=== PATIENT | female | born 1930 | race African-American/Black ===

== ENCOUNTER 2017-05-14 06:11 | Inpatient (IN) | payer MEDICARE ==
[~2017-05-14] VITALS: Ht 167.6 cm; Wt 62.6 kg
[~2017-05-14 06:11] MED LIST: AMLO5TAB88 PO; ASPI-867 PO; ATOR20TA PO; Atenolol PO
[2017-05-14] MEDS ORDERED: DIPHENHYDRAMINE 50MG/ML VIAL IV ONE (07:00)
[2017-05-14] MEDS ORDERED: METHYLPREDNISOLONE SOD SUCC 125 MG/2 ML VIAL IV ONE (07:00)
[2017-05-14] MEDS ORDERED: FAMOTIDINE 20MG/2ML VIAL IV ONE (07:00)
[2017-05-14 07:13] LABS: BASOPHILS % 0.9 % (0.0-2.0); EOSINOPHILS % 3.2 % (0.0-5.0); HEMATOCRIT. 38.8 % (36.0-48.0); HEMOGLOBIN. 12.8 g/dL (12.0-16.0); LYMPHOCYTES % 25.5 % (20.0-50.0); MEAN CORPUSCULAR HEMOGLOBIN 27.2 pg (28.0-32.0); MEAN CORPUSCULAR VOLUME 82.5 fL (81.0-99.0); MONOCYTES % 9.9 % (2.0-8.0); NEUTROPHILS % 60.5 % (40.0-76.0); RED CELL DISTRIBUTION WIDTH 15.3 % (11.6-14.6)
[2017-05-14 07:17] LABS: CHLORIDE 107 mEq/L (98-107)
[2017-05-14 07:19] LABS: INR 1.1
[2017-05-14 07:26] LABS: CARBON DIOXIDE 24 mEq/L (21-32)
[2017-05-14 07:33] LABS: MEAN PLATELET VOLUME 8.7 fl (7.4-10.4)
[2017-05-14 07:34] LABS: PLATELET 245 x1000/uL (130-400)
[2017-05-14 10:45] VITALS: BP 132/63
[2017-05-14 11:00] VITALS: BP 132/63
[2017-05-14] MEDS ORDERED: CLONIDINE 0.1MG TABLET PO PRN (14:30)
[2017-05-14] MEDS ORDERED: DIPHENHYDRAMINE 25MG CAPSULE PO PRN (14:30)
[2017-05-14] MEDS ORDERED: LORAZEPAM 2MG/ML CPJ IV PRN (14:30)
[2017-05-14] MEDS ORDERED: HYDROCODONE/ACETAMINOPHEN 5/325MG TABLET PO PRN (14:30)
[2017-05-14] MEDS: METHYLPREDNISOLONE SOD SUCC 40 MG/ML VIAL IV SCH ×2 (15:19→22:33)
[2017-05-14 15:52] VITALS: BP 137/72
[2017-05-14 18:53] LABS: CLARITY URINE CLEAR (CLEAR); COLOR URINE YELLOW (YELLOW); GLUCOSE URINE NEGATIVE (NEGATIVE); KETONES URINE TRACE (NEGATIVE); LEUKOCYTE ESTERASE URINE TRACE (NEGATIVE); NITRITE URINE NEGATIVE (NEGATIVE); OCCULT BLOOD URINE NEGATIVE (NEGATIVE); PROTEIN URINE NEGATIVE (NEGATIVE)
[2017-05-14 20:00] VITALS: BP 156/76
[2017-05-14] MEDS ORDERED: ATORVASTATIN CALCIUM 20MG TABLET PO SCH (21:00)
[2017-05-15 03:32] VITALS: BP 164/80
[2017-05-15] MEDS: METHYLPREDNISOLONE SOD SUCC 40 MG/ML VIAL IV SCH (06:01)
[2017-05-15 06:15] LABS: BASOPHILS % 0.2 % (0.0-2.0); HEMOGLOBIN. 11.3 g/dL (12.0-16.0); LYMPHOCYTES % 11.5 % (20.0-50.0); MEAN CORPUSCULAR HEMOGLOBIN 26.9 pg (28.0-32.0); MEAN CORPUSCULAR VOLUME 83.2 fL (81.0-99.0); MEAN PLATELET VOLUME 9.2 fl (7.4-10.4); MONOCYTES % 2.6 % (2.0-8.0); NEUTROPHILS % 85.7 % (40.0-76.0); PLATELET 211 x1000/uL (130-400); RED BLOOD CELL COUNT 4.21 mill/uL (4.2-5.4); RED CELL DISTRIBUTION WIDTH 15.1 % (11.6-14.6)
[2017-05-15 06:31] LABS: CARBON DIOXIDE 24 mEq/L (21-32); CHLORIDE 104 mEq/L (98-107); TROPONIN I 0.05 ng/mL (0.00-0.04)
[2017-05-15 08:00] VITALS: BP 146/96
[2017-05-15] MEDS ORDERED: PANTOPRAZOLE SODIUM 40 MG/VIAL IV SCH (09:00)
[2017-05-15] MEDS ORDERED: AMLODIPINE 10MG TABLET PO SCH (09:00)
[2017-05-15] MEDS ORDERED: ASPIRIN 325MG EC TABLET PO SCH (09:00)
[2017-05-15 11:04] VITALS: BP 146/76
== END 2017-05-15 11:33 | disposition home or self-care (01) | DRG 916 ==
LOC: ER 06:11 → 8WST 08:38 → EDBEDREQTM 08:39 → EDBEDREQ 08:39 → ENRESERV 10:19
PROVIDERS: ADMIT Internal Medicine; ATTEND Internal Medicine
DX: T78.3XXA Angioneurotic edema, initial encounter (principal); I10 Essential (primary) hypertension; T46.4X5A Adverse effect of angiotensin-converting-enzyme inhibitors, initial encounter; Z91.018 Allergy to other foods; Z79.82 Long term (current) use of aspirin; Z79.899 Other long term (current) drug therapy; Y92.89 Other specified places as the place of occurrence of the external cause
CPT/HCPCS: 36415; 71010; 80053; 81001; 84443; 84484; 85025; 85610; 86850; 86900; 93005; 99285; C9113; J1200; J2920; J2930; J3490

== ENCOUNTER 2019-04-27 01:09 | Inpatient (IN) | payer MEDICARE ==
[~2019-04-27] VITALS: Ht 167.6 cm; Wt 56.2 kg
[2019-04-27] VITALS (33 sets, daily range): BP systolic 122–176; BP diastolic 58–109
[~2019-04-27 01:09] MED LIST changes: -ASPI-867 PO; +ASPI325T85 PO
[2019-04-27] MEDS ORDERED: ONDANSETRON HCL 4MG/2ML INJ IV STA (01:18)
[2019-04-27] MEDS ORDERED: ASPIRIN 81MG TABLET PO ONE (01:30)
[2019-04-27] MEDS ORDERED: NITROGLYCERIN OINT 1GM/INCH UDPKT TD ONE (01:30)
[2019-04-27] MEDS ORDERED: FUROSEMIDE 40MG/4ML VIAL IV ONE (01:30)
[2019-04-27 01:53] LABS: EOSINOPHILS % 4.5 % (0.0-5.0); HEMATOCRIT. 38.6 % (36.0-48.0); HEMOGLOBIN. 12.8 g/dL (12.0-16.0); MEAN CORPUSCULAR HEMOGLOBIN 28.7 pg (28.0-32.0); MEAN CORPUSCULAR VOLUME 86.8 fL (81.0-99.0); MEAN PLATELET VOLUME 8.9 fl (7.4-10.4); NEUTROPHILS % 58.5 % (40.0-76.0); PLATELET 218 x1000/uL (130-400); RED BLOOD CELL COUNT 4.44 mill/uL (4.2-5.4); RED CELL DISTRIBUTION WIDTH 15.6 % (11.6-14.6)
[2019-04-27 02:00] LABS: CHLORIDE 105 mEq/L (98-107)
[2019-04-27 02:09] LABS: BG BASE EXCESS -1.8 mmol/L (-2.0-2.0); BG BILEVEL POS AIRWAY PRESSURE 15/5; BG CARBOXYHEMOGLOBIN 0.2 % (0.5-1.5); BG DEOXYHEMOGLOBIN 1.2 % (0.0-5.0); BG FRACTION INSPIRED OXYGEN 60; BG HCO3 ACT 22.6 mmol/L (22.0-26.0); BG METHEMOGLOBIN 0.2 % (0.0-1.5); BG OXYGEN SATURATION 98.8 % (92.0-98.5); BG OXYHEMOGLOBIN 98.4 % (94.0-97.0); BG PCO2 37.4 mmHg (35.0-45.0); BG PH 7.399 (7.350-7.450); BG PO2 145.8 mmHg (75.0-100.0); BG SAMPLE SITE RIGHT RADIAL; BG TOTAL HEMOGLOBIN 12.4 g/dL (12.0-18.0); BG VENT MODE MASK - BIPAP; BG VENT RATE 16 set
[2019-04-27] MEDS ORDERED: DEXTROSE 50% WATER 50ML SYRINGE IV PRN (09:15)
[2019-04-27] MEDS: DOCUSATE SODIUM 250MG CAPSULE PO SCH (11:25)
[2019-04-27] MEDS: INSULIN LISPRO 100 UNITS/ML SUBCUT SCH ×2 (12:20→17:08)
[2019-04-27] MEDS: BLOOD SUGAR DIAGNOSTIC STRIP TEST SCH ×3 (12:28→21:00)
[2019-04-27] MEDS ORDERED: IPRATROPIUM/ALBUTEROL 0.5-3(2.5)MG/3ML NEB HHN PRN (13:00)
[2019-04-27] MEDS ORDERED: ENOXAPARIN 40MG/0.4ML SYR SUBCUT SCH (18:00)
[2019-04-27 18:26] LABS: BG BASE EXCESS 1.2 mmol/L (-2.0-2.0); BG CARBOXYHEMOGLOBIN 0.5 % (0.5-1.5); BG HCO3 ACT 25.7 mmol/L (22.0-26.0); BG METHEMOGLOBIN 0.1 % (0.0-1.5); BG OXYHEMOGLOBIN 97.4 % (94.0-97.0); BG PCO2 40.6 mmHg (35.0-45.0); BG PO2 107.1 mmHg (75.0-100.0); BG SAMPLE SITE LEFT RADIAL; BG TOTAL HEMOGLOBIN 12.1 g/dL (12.0-18.0); BG VENT MODE NASAL CANNULA
[2019-04-27] MEDS: CLOPIDOGREL 75MG TABLET PO SCH (19:00)
[2019-04-27] MEDS ORDERED: IOHEXOL-350 100 ML BOTTLE ONE (20:54)
[2019-04-27 20:57] LABS: INR 1.1; PROTHROMBIN TIME 11.6 sec (9.6-11.0)
[2019-04-27] MEDS: FLUTICASONE PROPIONATE 50MCG/SPRAY BOTTLE BOTHNSTRLS SCH (21:00)
[2019-04-27] MEDS ORDERED: BLOOD SUGAR DIAGNOSTIC STRIP TEST SCH (21:00)
[2019-04-27] MEDS ORDERED: DEXT 5% WATER + KCL 20MEQ/L 1,000 ML IV SCH (22:00)
[2019-04-27] MEDS ORDERED: ENOXAPARIN 60MG/0.6ML SYR SUBCUT SCH (22:00)
[2019-04-27] MEDS: POTASSIUM CHLORIDE INJ 20 MEQ in DEXTROSE 5% WATER 1,000 ML IV SCH (23:06)
[2019-04-28] VITALS (89 sets, daily range): BP systolic 117–170; BP diastolic 32–124
[2019-04-28] MEDS ORDERED: HYDR-4135 MT (01:03)
[2019-04-28] MEDS ORDERED: AMLO10TA80 MT (01:03)
[2019-04-28] MEDS ORDERED: ATEN50TA MT (01:03)
[2019-04-28] MEDS ORDERED: VITA1CAP MT (01:03)
[2019-04-28] MEDS ORDERED: BISA-81 MT (01:03)
[2019-04-28] MEDS ORDERED: PRAV40TA58 MT (01:03)
[2019-04-28] MEDS ORDERED: ATROPINE SULFATE 1MG/ML VIAL IV PRN (02:30)
[2019-04-28 05:11] LABS: HEMATOCRIT. 35.7 % (36.0-48.0); HEMOGLOBIN. 11.4 g/dL (12.0-16.0); MEAN CORPUSCULAR HEMOGLOBIN 27.9 pg (28.0-32.0); MEAN CORPUSCULAR VOLUME 87.3 fL (81.0-99.0); MEAN PLATELET VOLUME 9.5 fl (7.4-10.4); PLATELET 175 x1000/uL (130-400); RED BLOOD CELL COUNT 4.08 mill/uL (4.2-5.4); RED CELL DISTRIBUTION WIDTH 15.3 % (11.6-14.6)
[2019-04-28] MEDS: BLOOD SUGAR DIAGNOSTIC STRIP TEST SCH ×4 (06:30→21:06)
[2019-04-28 06:45] LABS: PLATELET ESTIMATE NORMAL
[2019-04-28] MEDS: FUROSEMIDE 40MG/4ML VIAL IVP SCH (10:03)
[2019-04-28] MEDS: ASPIRIN 300MG SUPP PR SCH (10:03)
[2019-04-28 11:09] LABS: CREATINE KINASE MB FRACTION 9.2 ng/mL (0.5-3.6)
[2019-04-28] MEDS: CLOPIDOGREL 75MG TABLET PO SCH (14:45)
[2019-04-28] MEDS: FLUTICASONE PROPIONATE 50MCG/SPRAY BOTTLE BOTHNSTRLS SCH ×2 (15:10→21:10)
[2019-04-28] MEDS ORDERED: IOHEXOL-350 100 ML BOTTLE ONE (15:19)
[2019-04-28] MEDS: DOCUSATE SODIUM 250MG CAPSULE PO SCH (15:41)
[2019-04-28 16:15] LABS: CLARITY URINE CLEAR (CLEAR); COLOR URINE YELLOW (YELLOW); KETONES URINE NEGATIVE (NEGATIVE); LEUKOCYTE ESTERASE URINE TRACE (NEGATIVE); NITRITE URINE NEGATIVE (NEGATIVE); OCCULT BLOOD URINE 1+ (NEGATIVE); PROTEIN URINE NEGATIVE (NEGATIVE); SPECIFIC GRAVITY URINE 1.011 (1.005-1.030); UROBILINOGEN URINE 0.2 E.U./dL (0.2-1.0)
[2019-04-28] MEDS: POTASSIUM CHLORIDE INJ 20 MEQ in DEXTROSE 5% WATER 1,000 ML IV SCH (17:29)
[2019-04-28] MEDS: ATORVASTATIN CALCIUM 40MG TABLET PO SCH (21:00)
[2019-04-28] MEDS ORDERED: ENOXAPARIN 60MG/0.6ML SYR SUBCUT SCH (21:00)
[2019-04-29] VITALS (34 sets, daily range): BP systolic 119–181; BP diastolic 45–113
[2019-04-29] MEDS: POTASSIUM CHLORIDE INJ 20 MEQ in DEXTROSE 5% WATER 1,000 ML IV SCH ×2 (01:03→09:45)
[2019-04-29 05:01] LABS: BASOPHILS % 0.5 % (0.0-2.0); EOSINOPHILS % 1.7 % (0.0-5.0); HEMATOCRIT. 38.3 % (36.0-48.0); HEMOGLOBIN. 12.5 g/dL (12.0-16.0); MEAN CORPUSCULAR HEMOGLOBIN 28.5 pg (28.0-32.0); MEAN CORPUSCULAR VOLUME 87.2 fL (81.0-99.0); MEAN PLATELET VOLUME 9.7 fl (7.4-10.4); MONOCYTES % 14.2 % (2.0-8.0); NEUTROPHILS % 64.6 % (40.0-76.0); PLATELET 171 x1000/uL (130-400); RED BLOOD CELL COUNT 4.39 mill/uL (4.2-5.4)
[2019-04-29 05:13] LABS: CHLORIDE 104 mEq/L (98-107)
[2019-04-29 05:23] LABS: LDL CHOLESTEROL 102 mg/dL (5-100)
[2019-04-29 05:25] LABS: CREATINE KINASE 177 IU/L (26-192); CREATINE KINASE MB FRACTION 3.6 ng/mL (0.5-3.6); HDL CHOLESTEROL 54 mg/dL (40-59)
[2019-04-29] MEDS: BLOOD SUGAR DIAGNOSTIC STRIP TEST SCH ×2 (05:42→11:30)
[2019-04-29 07:14] LABS: BG BASE EXCESS 1.7 mmol/L (-2.0-2.0); BG CARBOXYHEMOGLOBIN 0.3 % (0.5-1.5); BG DEOXYHEMOGLOBIN 7.3 % (0.0-5.0); BG METHEMOGLOBIN 0.2 % (0.0-1.5); BG OXYGEN SATURATION 92.7 % (92.0-98.5); BG OXYHEMOGLOBIN 92.2 % (94.0-97.0); BG PCO2 35.1 mmHg (35.0-45.0); BG PH 7.471 (7.350-7.450); BG PO2 64.2 mmHg (75.0-100.0); BG SAMPLE SITE RIGHT RADIAL; BG TOTAL HEMOGLOBIN 12.3 g/dL (12.0-18.0); BG VENT MODE ROOM AIR
[2019-04-29] MEDS: DOCUSATE SODIUM 250MG CAPSULE PO SCH (09:00)
[2019-04-29] MEDS: FLUTICASONE PROPIONATE 50MCG/SPRAY BOTTLE BOTHNSTRLS SCH ×2 (09:44→22:39)
[2019-04-29] MEDS: FUROSEMIDE 40MG/4ML VIAL IVP SCH (09:44)
[2019-04-29] MEDS: ASPIRIN 300MG SUPP PR SCH (09:45)
[2019-04-29] MEDS: CLOPIDOGREL 75MG TABLET PO SCH (09:45)
[2019-04-29] MEDS: DOCUSATE SODIUM SUGAR FREE 100MG/10ML UDC PO SCH (11:00)
[2019-04-29] MEDS: METFORMIN HCL 500MG TABLET PO SCH (17:35)
[2019-04-29] MEDS: ATORVASTATIN CALCIUM 40MG TABLET PO SCH (21:28)
[2019-04-30] VITALS (12 sets, daily range): BP systolic 130–154; BP diastolic 54–85
[2019-04-30 07:07] LABS: HEMATOCRIT. 35.7 % (36.0-48.0); HEMOGLOBIN. 11.4 g/dL (12.0-16.0); MEAN CORPUSCULAR HEMOGLOBIN 28.2 pg (28.0-32.0); MEAN CORPUSCULAR VOLUME 88.1 fL (81.0-99.0); MEAN PLATELET VOLUME 9.7 fl (7.4-10.4); PLATELET 176 x1000/uL (130-400); RED BLOOD CELL COUNT 4.05 mill/uL (4.2-5.4); RED CELL DISTRIBUTION WIDTH 15.5 % (11.6-14.6)
[2019-04-30 07:25] LABS: PLATELET ESTIMATE NORMAL
[2019-04-30 08:08] LABS: BG BASE EXCESS 4.5 mmol/L (-2.0-2.0); BG CARBOXYHEMOGLOBIN 0.5 % (0.5-1.5); BG DEOXYHEMOGLOBIN 5.4 % (0.0-5.0); BG FRACTION INSPIRED OXYGEN 21; BG OXYGEN SATURATION 94.6 % (92.0-98.5); BG OXYHEMOGLOBIN 94.1 % (94.0-97.0); BG PH 7.531 (7.350-7.450); BG PO2 68.9 mmHg (75.0-100.0); BG SAMPLE SITE RIGHT RADIAL; BG TOTAL HEMOGLOBIN 11.8 g/dL (12.0-18.0); BG VENT MODE ROOM AIR
[2019-04-30] MEDS: METFORMIN HCL 500MG TABLET PO SCH ×2 (08:54→17:17)
[2019-04-30] MEDS: DOCUSATE SODIUM 250MG CAPSULE PO SCH (09:00)
[2019-04-30] MEDS: FUROSEMIDE 40MG/4ML VIAL IVP SCH (09:12)
[2019-04-30] MEDS: DOCUSATE SODIUM SUGAR FREE 100MG/10ML UDC PO SCH (09:12)
[2019-04-30] MEDS: FLUTICASONE PROPIONATE 50MCG/SPRAY BOTTLE BOTHNSTRLS SCH ×2 (09:13→20:31)
[2019-04-30] MEDS: CLOPIDOGREL 75MG TABLET PO SCH (09:13)
[2019-04-30] MEDS ORDERED: CEFTRIAXONE 1,000 MG in DEXTROSE 5% WATER 50 ML IV SCH (13:30)
[2019-04-30] MEDS: CEFTRIAXONE 1,000 MG in DEXTROSE 5% WATER 50 ML IV SCH (15:09)
[2019-04-30] MEDS: METOPROLOL TARTRATE 25MG TABLET PO SCH (20:28)
[2019-04-30] MEDS: ATORVASTATIN CALCIUM 40MG TABLET PO SCH (20:28)
[2019-05-01] VITALS (12 sets, daily range): BP systolic 110–153; BP diastolic 56–80
[2019-05-01 06:21] LABS: HEMATOCRIT. 35.8 % (36.0-48.0); HEMOGLOBIN. 11.8 g/dL (12.0-16.0); MEAN CORPUSCULAR HEMOGLOBIN 28.2 pg (28.0-32.0); MEAN CORPUSCULAR VOLUME 85.7 fL (81.0-99.0); MEAN PLATELET VOLUME 9.6 fl (7.4-10.4); PLATELET 196 x1000/uL (130-400); RED BLOOD CELL COUNT 4.18 mill/uL (4.2-5.4); RED CELL DISTRIBUTION WIDTH 14.9 % (11.6-14.6)
[2019-05-01 07:52] LABS: PLATELET ESTIMATE NORMAL
[2019-05-01] MEDS: DOCUSATE SODIUM 250MG CAPSULE PO SCH (09:00)
[2019-05-01] MEDS: METOPROLOL TARTRATE 25MG TABLET PO SCH ×2 (09:00→20:56)
[2019-05-01] MEDS: CLOPIDOGREL 75MG TABLET PO SCH (09:00)
[2019-05-01] MEDS: METFORMIN HCL 500MG TABLET PO SCH ×2 (09:00→17:56)
[2019-05-01] MEDS: DOCUSATE SODIUM SUGAR FREE 100MG/10ML UDC PO SCH (09:00)
[2019-05-01] MEDS ORDERED: GADOBENATE DIMEGLUMINE 529 MG/ML 10ML IV ONE (12:42)
[2019-05-01] MEDS: CEFTRIAXONE 1,000 MG in DEXTROSE 5% WATER 50 ML IV SCH (15:24)
[2019-05-01] MEDS: ATORVASTATIN CALCIUM 40MG TABLET PO SCH (20:56)
[2019-05-02] VITALS (12 sets, daily range): BP systolic 116–141; BP diastolic 60–88
[2019-05-02] MEDS: METOPROLOL TARTRATE 25MG TABLET PO SCH ×2 (09:29→21:02)
[2019-05-02] MEDS: METFORMIN HCL 500MG TABLET PO SCH ×2 (09:29→18:08)
[2019-05-02] MEDS: DOCUSATE SODIUM SUGAR FREE 100MG/10ML UDC PO SCH (09:29)
[2019-05-02] MEDS: DOCUSATE SODIUM 250MG CAPSULE PO SCH (09:29)
[2019-05-02] MEDS: CLOPIDOGREL 75MG TABLET PO SCH (09:29)
[2019-05-02] MEDS ORDERED: LACTULOSE 20G/30ML UDC PO NR (12:35)
[2019-05-02] MEDS: CEFTRIAXONE 1,000 MG in DEXTROSE 5% WATER 50 ML IV SCH (16:03)
[2019-05-02] MEDS: ATORVASTATIN CALCIUM 40MG TABLET PO SCH (21:02)
[2019-05-03] VITALS (12 sets, daily range): BP systolic 120–151; BP diastolic 62–85
[2019-05-03] MEDS: CLOPIDOGREL 75MG TABLET PO SCH (08:18)
[2019-05-03] MEDS: METOPROLOL TARTRATE 25MG TABLET PO SCH ×2 (08:18→21:21)
[2019-05-03] MEDS: METFORMIN HCL 500MG TABLET PO SCH ×2 (08:18→18:27)
[2019-05-03] MEDS: DOCUSATE SODIUM SUGAR FREE 100MG/10ML UDC PO SCH (08:18)
[2019-05-03] MEDS: DOCUSATE SODIUM 250MG CAPSULE PO SCH (08:18)
[2019-05-03] MEDS: FLUTICASONE PROPIONATE 50MCG/SPRAY BOTTLE BOTHNSTRLS SCH (14:53)
[2019-05-03] MEDS: CEFTRIAXONE 1,000 MG in DEXTROSE 5% WATER 50 ML IV SCH (14:53)
[2019-05-03] MEDS: FAMOTIDINE 20MG TABLET PO SCH (21:20)
[2019-05-03] MEDS: ATORVASTATIN CALCIUM 40MG TABLET PO SCH (21:20)
[2019-05-04] VITALS (12 sets, daily range): BP systolic 115–152; BP diastolic 60–87
[2019-05-04] MEDS: METFORMIN HCL 500MG TABLET PO SCH ×3 (08:30→18:00)
[2019-05-04] MEDS: APIXABAN 2.5 MG TABLET PO SCH ×3 (08:30→17:58)
[2019-05-04] MEDS: CLOPIDOGREL 75MG TABLET PO SCH (08:30)
[2019-05-04] MEDS: DOCUSATE SODIUM 250MG CAPSULE PO SCH (08:30)
[2019-05-04] MEDS: FLUTICASONE PROPIONATE 50MCG/SPRAY BOTTLE BOTHNSTRLS SCH (08:31)
[2019-05-04] MEDS: METOPROLOL TARTRATE 25MG TABLET PO SCH ×2 (08:32→21:01)
[2019-05-04] MEDS ORDERED: APIXABAN 5 MG TABLET PO SCH (09:00)
[2019-05-04] MEDS: DOCUSATE SODIUM SUGAR FREE 100MG/10ML UDC PO SCH (09:00)
[2019-05-04] MEDS: CEFTRIAXONE 1 G PREMIX 50 ML IV SCH (15:14)
[2019-05-04] MEDS: FAMOTIDINE 20MG TABLET PO SCH (21:01)
[2019-05-04] MEDS: ATORVASTATIN CALCIUM 40MG TABLET PO SCH (21:01)
[2019-05-05] VITALS (9 sets, daily range): BP systolic 114–146; BP diastolic 42–72
[2019-05-05 08:05] LABS: BASOPHILS % 0.7 % (0.0-2.0); CHLORIDE 107 mEq/L (98-107); EOSINOPHILS % 8.1 % (0.0-5.0); HEMATOCRIT. 33.8 % (36.0-48.0); LYMPHOCYTES % 25.1 % (20.0-50.0); MEAN CORPUSCULAR HEMOGLOBIN 28.1 pg (28.0-32.0); MEAN CORPUSCULAR VOLUME 86.6 fL (81.0-99.0); MEAN PLATELET VOLUME 9.9 fl (7.4-10.4); MONOCYTES % 14.1 % (2.0-8.0); PLATELET 179 x1000/uL (130-400); RED CELL DISTRIBUTION WIDTH 14.9 % (11.6-14.6)
[2019-05-05] MEDS: DOCUSATE SODIUM SUGAR FREE 100MG/10ML UDC PO SCH (09:30)
[2019-05-05] MEDS: FLUTICASONE PROPIONATE 50MCG/SPRAY BOTTLE BOTHNSTRLS SCH (09:30)
[2019-05-05] MEDS: APIXABAN 2.5 MG TABLET PO SCH ×2 (09:31→16:46)
[2019-05-05] MEDS: METOPROLOL TARTRATE 25MG TABLET PO SCH (09:31)
[2019-05-05] MEDS: METFORMIN HCL 500MG TABLET PO SCH ×2 (09:31→17:01)
[2019-05-05] MEDS ORDERED: GUAIFENESIN-DM 200MG-20MG/10ML UDC PO PRN (11:15)
[2019-05-05] MEDS ORDERED: SILDENAFIL CITRATE 20MG TABLET PO SCH (14:00)
[2019-05-05] MEDS: CEFTRIAXONE 1 G PREMIX 50 ML IV SCH (16:47)
== END 2019-05-05 20:58 | DRG 64 ==
LOC: ER 01:09 → EDBEDREQ 02:50 → EDBEDREQSVC 02:50 → EDBEDREQTM 02:50 → 3WST 05:19 → EDBEDREQ 05:27 → EDBEDREQTM 05:27 → ENRESERV 07:32 → MICUNO 18:00 → 5EST 04-29 16:35
PROVIDERS: ADMIT Internal Medicine; ATTEND Internal Medicine
PROC: 5A09357 Assistance with Respiratory Ventilation, Less than 24 Consecutive Hours, Continuous Positive Airway Pressure (ICD-10-PCS; principal; 2019-04-27)
DX: I63.9 Cerebral infarction, unspecified (principal); I21.19 ST elevation (STEMI) myocardial infarction involving other coronary artery of inferior wall; I26.99 Other pulmonary embolism without acute cor pulmonale; J96.00 Acute respiratory failure, unspecified whether with hypoxia or hypercapnia; I50.43 Acute on chronic combined systolic (congestive) and diastolic (congestive) heart failure; J69.0 Pneumonitis due to inhalation of food and vomit; G93.40 Encephalopathy, unspecified; E87.2 Acidosis; G81.94 Hemiplegia, unspecified affecting left nondominant side; I11.0 Hypertensive heart disease with heart failure; E04.2 Nontoxic multinodular goiter; E11.9 Type 2 diabetes mellitus without complications; E78.5 Hyperlipidemia, unspecified; I27.20 Pulmonary hypertension, unspecified; J00 Acute nasopharyngitis [common cold]; R29.810 Facial weakness; I44.0 Atrioventricular block, first degree; I48.0 Paroxysmal atrial fibrillation; Z79.899 Other long term (current) drug therapy; R00.1 Bradycardia, unspecified; M48.02 Spinal stenosis, cervical region; Z87.891 Personal history of nicotine dependence; Z90.710 Acquired absence of both cervix and uterus; Z98.51 Tubal ligation status; Z79.82 Long term (current) use of aspirin
CPT/HCPCS: 36415; 36600; 70496; 70498; 70544; 70551; 70553; 71045; 71275; 72141; 78582; 80048; 80061; 81003; 82140; 82375; 82550; 82553; 82805; 82962; 83036; 83605; 83735; 83880; 84443; 84484; 85384; 92610; 93005; 93306; 93970; 94660; 97112; 97163; 97167; 97530; 99285; A9558; A9577; J0696; J1650; J1940; J2405; J3480; J7040; J7060; J7070; J7620; Q9967